=== PATIENT | female | born 1985 | race Caucasian/White ===

== ENCOUNTER 2017-04-24 16:45 | Emergency (ER) | payer SELFPAY ==
[~2017-04-24] VITALS: Wt 64.4 kg
[~2017-04-24 16:45] MED LIST: AMOXICILLIN500 M2 PO; AMOXICILLIN500 MG PO; CLARITIN-D 12 H1 TAB PO; CYCLOBENZAPRINE10 MG PO; MIRALAX POWDER17 G1 PO; MOTRIN800 MG PO; Motrin,Rufen800 MG PO; NAPROSYN500 MG PO; NKHM; TRIMOX500 MG PO; ZITHROMAX TRI-500 M1 PO; ZOFRAN4 MG PO
[2017-04-24] MEDS ORDERED: TAMIFLU 75MG CA75 MG PO (18:10)
== END 2017-04-24 17:09 | disposition home or self-care (01) ==
LOC: ED 16:45
DX: Z20.828 Contact with and (suspected) exposure to other viral communicable diseases (principal); R03.0 Elevated blood-pressure reading, without diagnosis of hypertension

== ENCOUNTER 2018-05-31 10:19 | Emergency (ER) | payer BC ==
[~2018-05-31] VITALS: Ht 160 cm; Wt 65.8 kg
[~2018-05-31 10:19] MED LIST changes: +TAMIFLU 75MG CA75 MG PO
[2018-05-31] MEDS ORDERED: ZITHROMAX250 MG PO (11:54)
[2018-05-31] MEDS ORDERED: FLONASE ALLERG9.9 ML NAS (11:54)
== END 2018-05-31 11:59 | disposition home or self-care (01) ==
LOC: ED 10:19
DX: J01.90 Acute sinusitis, unspecified (principal); Z79.899 Other long term (current) drug therapy

== ENCOUNTER 2018-11-11 21:14 | Emergency (ER) | payer BC ==
[~2018-11-11] VITALS: Wt 61.2 kg
[~2018-11-11 21:14] MED LIST changes: +FLONASE ALLERG9.9 ML NAS; +ZITHROMAX250 MG PO
[2018-11-11 21:48] LABS: BILIRUBIN NEGATIVE (NEGATIVE); BLOOD NEGATIVE (NEGATIVE); CLARITY CLEAR (CLEAR); COLOR YELLOW (YELLOW); GLUCOSE NEGATIVE (NEGATIVE); KETONE NEGATIVE (NEGATIVE); LEUKO ESTERASE NEGATIVE (NEGATIVE); NITRITE NEGATIVE (NEGATIVE); SPECIFIC GRAVITY <= 1.005 (1.005-1.030)
[2018-11-11 22:06] LABS: BASO % 0.3 % (0.0-1.0); EOS # 0.2 10*3/uL (0.0-0.4); EOS % 2.9 % (1.0-4.0); HEMATOCRIT 39.4 % (37.0-47.0); HEMOGLOBIN 13.2 g/dl (12.0-16.0); LYMPH # 1.8 10*3/uL (1.3-4.4); LYMPH % 25.8 % (27.0-41.0); MEAN CELL VOLUME 92.9 fl (81.0-99.0); MEAN CORPUSCULAR HGB 31.1 pg (27.0-31.0); MEAN CORPUSCULAR HGB CONC 33.5 g/dl (33.0-37.0); MEAN PLATELET VOLUME 8.8 fl (9.6-12.3); MONO # 0.7 10*3/uL (0.1-1.0); MONO % 10.1 % (3.0-9.0); NEUT # 4.3 10*3/uL (2.3-7.9); NEUT % 60.8 % (47.0-73.0); PLATELET COUNT AUTOMATED 271 10*3/uL (130-400); RED BLOOD COUNT 4.24 10*6/uL (4.10-5.10); RED CELL DISTRI WIDTH 12.9 % (0-14.5); WHITE BLOOD COUNT 7.1 10*3/uL (4.8-10.8)
[2018-11-11 22:21] LABS: ALBUMIN 3.8 gm/dl (3.1-4.5); ALKALINE PHOSPHATASE 55 U/L (45-117); BUN 10 mg/dl (7-24); CHLORIDE 104 mmol/L (98-107); CREATININE 0.79 mg/dL (0.55-1.02); LIPASE 109 U/L (73-393); POTASSIUM 3.3 mmol/L (3.5-5.1); SGOT/AST 19 IU/L (3-35); SGPT/ALT 22 U/L (12-78); SODIUM 135 mmol/L (136-145); TOTAL PROTEIN 8.2 gm/dL (6.4-8.2)
== END 2018-11-12 02:15 | disposition home or self-care (01) ==
LOC: ED 21:14
PROVIDERS: Student in an Organized Health Care Education/Training Program
DX: R10.12 Left upper quadrant pain (principal); R10.32 Left lower quadrant pain; R42 Dizziness and giddiness; R11.0 Nausea; R35.8 Other polyuria; R63.1 Polydipsia; R53.83 Other fatigue; R68.83 Chills (without fever); Z79.899 Other long term (current) drug therapy

== ENCOUNTER 2019-05-29 17:42 | Emergency (ER) | payer BC ==
[~2019-05-29] VITALS: Ht 160 cm; Wt 73.9 kg
[2019-05-29] MEDS ORDERED: IBUPROFEN600 MG PO (20:42)
== END 2019-05-29 20:52 | disposition home or self-care (01) ==
LOC: ED 17:42
DX: J02.9 Acute pharyngitis, unspecified (principal); Z79.899 Other long term (current) drug therapy

== ENCOUNTER → 2019-10-11 | Outpatient (CLI) | payer BC ==
[~2019-10-11] MED LIST changes: +IBUPROFEN600 MG PO
[2019-10-11 12:20] LABS: BASO % 0.6 % (0.0-1.0); EOS # 0.1 10*3/uL (0.0-0.4); EOS % 1.7 % (1.0-4.0); HEMATOCRIT 37.6 % (37.0-47.0); LYMPH # 1.4 10*3/uL (1.3-4.4); LYMPH % 26.4 % (27.0-41.0); MEAN CELL VOLUME 93.5 fl (81.0-99.0); MEAN CORPUSCULAR HGB 31.3 pg (27.0-31.0); MEAN CORPUSCULAR HGB CONC 33.5 g/dl (33.0-37.0); MEAN PLATELET VOLUME 8.5 fl (9.6-12.3); MONO # 0.5 10*3/uL (0.1-1.0); MONO % 9.3 % (3.0-9.0); NEUT # 3.2 10*3/uL (2.3-7.9); NEUT % 61.6 % (47.0-73.0); PLATELET COUNT AUTOMATED 276 10*3/uL (130-400); RED BLOOD COUNT 4.02 10*6/uL (4.10-5.10); RED CELL DISTRI WIDTH 13.3 % (0-14.5); WHITE BLOOD COUNT 5.2 10*3/uL (4.8-10.8)
[2019-10-11 12:26] LABS: BILIRUBIN NEGATIVE (NEGATIVE); BLOOD NEGATIVE (NEGATIVE); CLARITY SL CLOUDY (CLEAR); COLOR YELLOW (YELLOW); GLUCOSE NEGATIVE (NEGATIVE); KETONE TRACE (NEGATIVE); LEUKO ESTERASE NEGATIVE (NEGATIVE); NITRITE NEGATIVE (NEGATIVE); SPECIFIC GRAVITY 1.025 (1.005-1.030)
[2019-10-11 12:29] LABS: BACTERIA 1+; MUCOUS 2+; RBC 0-2 rbc/hpf (0-2)
== END | disposition home or self-care (01) ==
LOC: LAB 12:00
PROVIDERS: Urology
DX: R31.9 Hematuria, unspecified (principal)

== ENCOUNTER → 2020-03-02 | Outpatient (CLI) | payer BC ==
[~2020-03-02] MED LIST changes: +PREDNISONE20 M1 PO; +PROVENTIL HFA6.7 GM INH
== END | disposition home or self-care (01) ==
LOC: COVID19 14:23
PROVIDERS: ATTEND Internal Medicine
DX: Z20.828 Contact with and (suspected) exposure to other viral communicable diseases (principal)

== ENCOUNTER 2020-04-11 13:26 | Emergency (ER) | payer BC ==
[~2020-04-11] VITALS: Ht 162.5 cm; Wt 68.9 kg
[~2020-04-11 13:26] MED LIST changes: -PREDNISONE20 M1 PO; -PROVENTIL HFA6.7 GM INH
[2020-04-11] MEDS ORDERED: PREDNISONE20 M1 PO (14:36)
[2020-04-11] MEDS ORDERED: PROVENTIL HFA6.7 GM INH (14:36)
[2020-04-11] MEDS ORDERED: ZITHROMAX250 MG PO (17:05)
== END 2020-04-11 17:30 | disposition home or self-care (01) ==
LOC: ED 13:26
DX: J18.9 Pneumonia, unspecified organism (principal); Z20.828 Contact with and (suspected) exposure to other viral communicable diseases; Z79.899 Other long term (current) drug therapy

== ENCOUNTER → 2020-07-08 | Outpatient (CLI) | payer BC ==
[~2020-07-08] MED LIST changes: +PREDNISONE20 M1 PO; +PROVENTIL HFA6.7 GM INH
== END | disposition home or self-care (01) ==
LOC: LAB 16:35
PROVIDERS: ATTEND Internal Medicine
DX: Z13.9 Encounter for screening, unspecified (principal)

== ENCOUNTER 2021-05-06 19:49 | Emergency (ER) | payer OTHER ==
[~2021-05-06] VITALS: Ht 162.5 cm; Wt 72.6 kg
[2021-05-06] MEDS ORDERED: MONTELUKAST SOD10 MG PO (20:54)
[2021-05-06 20:55] LABS: BASO % 0.5 % (0.0-1.0); EOS # 0.2 10*3/uL (0.0-0.4); EOS % 2.8 % (1.0-4.0); LYMPH # 2.2 10*3/uL (1.3-4.4); LYMPH % 33.2 % (27.0-41.0); MEAN CELL VOLUME 90.7 fl (81.0-99.0); MEAN CORPUSCULAR HGB 30.7 pg (27.0-31.0); MEAN CORPUSCULAR HGB CONC 33.8 g/dl (33.0-37.0); MEAN PLATELET VOLUME 8.6 fl (9.6-12.3); MONO # 0.5 10*3/uL (0.1-1.0); MONO % 8.3 % (3.0-9.0); NEUT # 3.6 10*3/uL (2.3-7.9); NEUT % 55.2 % (47.0-73.0); PLATELET COUNT AUTOMATED 299 10*3/uL (130-400); RED CELL DISTRI WIDTH 12.6 % (0-14.5); WHITE BLOOD COUNT 6.5 10*3/uL (4.8-10.8)
[2021-05-06 21:10] LABS: ALBUMIN 3.6 gm/dl (3.1-4.5); ALKALINE PHOSPHATASE 54 U/L (45-117); BUN 7 mg/dl (7-24); CHLORIDE 109 mmol/L (98-107); CREATININE 0.68 mg/dL (0.55-1.02); POTASSIUM 3.5 mmol/L (3.5-5.1); SGOT/AST 19 IU/L (3-35); SGPT/ALT 26 U/L (12-78); SODIUM 139 mmol/L (136-145); TOTAL PROTEIN 7.5 gm/dL (6.4-8.2)
== END 2021-05-06 22:01 | disposition home or self-care (01) ==
LOC: ED 19:49
PROVIDERS: Internal Medicine
DX: B34.9 Viral infection, unspecified (principal); Z20.822 Contact with and (suspected) exposure to COVID-19; Z79.899 Other long term (current) drug therapy